=== PATIENT | female | born 1970 | race Caucasian/White ===

== ENCOUNTER 2017-03-16 18:11 | Emergency (ER) | payer OTHER ==
[~2017-03-16] VITALS: Ht 154.9 cm; Wt 63.5 kg
== END 2017-03-16 20:15 | disposition home or self-care (01) ==
LOC: CFTX 18:11 → CED 18:11 → CFTX 19:19
DX: M54.32 Sciatica, left side (principal); M72.2 Plantar fascial fibromatosis; E78.5 Hyperlipidemia, unspecified; F17.210 Nicotine dependence, cigarettes, uncomplicated; Z88.2 Allergy status to sulfonamides; Z88.0 Allergy status to penicillin; Z88.8 Allergy status to other drugs, medicaments and biological substances
CPT/HCPCS: 99283